=== PATIENT | male | born 1985 | race African-American/Black ===

== ENCOUNTER 2017-01-26 17:09 | Emergency (ER) | payer SELFPAY ==
[~2017-01-26] VITALS: Ht 182.9 cm; Wt 73.0 kg
[2017-01-26 20:45] VITALS: BP 137/90
== END 2017-01-27 02:04 | disposition home or self-care (01) ==
LOC: ER 20:01
DX: L02.01 Cutaneous abscess of face (principal); F17.200 Nicotine dependence, unspecified, uncomplicated; F12.10 Cannabis abuse, uncomplicated; Z98.890 Other specified postprocedural states
CPT/HCPCS: 99283